=== PATIENT | male | born 1960 | race Caucasian/White ===

== ENCOUNTER 2023-08-31 08:19 | Day surgery (SDC) | payer BC, SELFPAY ==
[2023-08-31] VITALS (11 sets, daily range): BP systolic 111–167; BP diastolic 55–82; BMI 25.9
[2023-08-31] MEDS: NSS 239 ML IV (09:03)
[2023-08-31] MEDS: LOW STRENGTH ASPIRIN 81 MG PO (09:04)
[2023-08-31 10:04] LABS: ACT-LR - POC 232 Seconds (116-155)
--- NOTE | 2023-08-31 10:15 | ITS.CL.CATH ---
Pharmacy Cashier - Catheterization
Cardiac Catheterization
Procedure Report:
CARDIAC CATHETERIZATION REPORT
Date of Procedure: 08/31/2023
Referring: New Ely MD
Indication: Exertional dyspnea with elevated coronary calcium score
HEMODYNAMIC DATA
AO: 168/83
LV: 168/12
LEFT VENTRICULOGRAPHY: Mild global hypokinesis with EF 48%
CORONARY ANGIOGRAPHY
Dominance: Right
Left Main: Normal
LAD: Focal 60-70% mid LAD stenosis spanning the takeoff of the very large first diagonal branch. The diagonal branch has mild ostial stenosis.
Circumflex: Normal
RCA: Normal dominant vessel
FloWire assessment: At the conclusion of the diagnostic study, the patient underwent FloWire assessment of the LAD disease. Heparin was used for anticoagulation. A 6 Turkish EBU 3.5 guide was used. A CADsurf flow wire was advanced into the LAD
distal to the lesion. iFR measurements were 0.97, 0.95, and 0.96. These are all consistent with nonflow-limiting disease.
Closure Device: None-the procedure was performed via the right radial artery. The Darryl's test was normal prior to the procedure.
Radiation (mGy): 391
DAP (cm2.Gy): 34.5
Fluoroscopy time: 3.3-minute
CONCLUSIONS
1: Systemic hypertension
2: Mild global hypokinesis with EF 48%
3. Single-vessel CAD as described-the LAD lesion is not flow-limiting by FloWire assessment
4. Continue medical therapy directed at coronary artery disease, hypertension and left ventricular dysfunction. We will increase statin to achieve goal LDL less than 70
Copy to: New Ely MD, Pollo Garcia MD
Sandro Wolff MD, [facility]
[2023-08-31] MEDS: NSS 1000 IV (10:36)
== END 2023-08-31 13:34 | disposition home or self-care (01) ==
LOC: CATH 08:19
PROVIDERS: ATTENDING PHYSICIAN Internal Medicine Cardiovascular Disease
DX: I25.10 Atherosclerotic heart disease of native coronary artery without angina pectoris (principal); R06.09 Other forms of dyspnea; I10 Essential (primary) hypertension
CPT/HCPCS: 85347; 93458; 93571; C1769; C1894; Q9967

== ENCOUNTER → 2023-11-10 14:40 | Outpatient (REF) | payer OTHER, SELFPAY | LOC: RCS 14:40 | PROVIDERS: FAMILY PHYSICIAN Family Medicine | DX: I48.91 Unspecified atrial fibrillation (principal); I10 Essential (primary) hypertension; E78.2 Mixed hyperlipidemia; I50.22 Chronic systolic (congestive) heart failure; I44.7 Left bundle-branch block, unspecified; I25.10 Atherosclerotic heart disease of native coronary artery without angina pectoris | CPT/HCPCS: 93306; Q9950 ==

== ENCOUNTER → 2023-12-31 08:31 | Outpatient (REF) | payer OTHER, SELFPAY | LOC: PAVMRI 08:31 | PROVIDERS: ATTENDING PHYSICIAN Internal Medicine Interventional Cardiology | DX: I48.91 Unspecified atrial fibrillation (principal); I10 Essential (primary) hypertension; E78.2 Mixed hyperlipidemia; I44.7 Left bundle-branch block, unspecified | CPT/HCPCS: 75561; 75565; A9585 ==

== ENCOUNTER → 2025-01-12 07:59 | Outpatient (REF) | payer OTHER, SELFPAY | LOC: RCS 07:59 | PROVIDERS: ATTENDING PHYSICIAN Internal Medicine Cardiovascular Disease; FAMILY PHYSICIAN Student in an Organized Health Care Education/Training Program | DX: I50.22 Chronic systolic (congestive) heart failure (principal) | CPT/HCPCS: 93306 ==

== ENCOUNTER → 2025-05-12 07:02 | Outpatient (REF) | payer OTHER, SELFPAY | LOC: HWRCS 07:02 | PROVIDERS: ATTENDING PHYSICIAN Student in an Organized Health Care Education/Training Program | DX: I25.10 Atherosclerotic heart disease of native coronary artery without angina pectoris (principal); R07.89 Other chest pain; I44.7 Left bundle-branch block, unspecified | CPT/HCPCS: 78452; 93017; A9500; J2785 ==